=== PATIENT | male | born 1965 | race Caucasian/White ===

== ENCOUNTER 2018-03-21 04:01 | Emergency (ER) | payer OTHER ==
--- NOTE | 2018-03-21 04:04 | PDOC ---
History of Present Illness - General Chief Complaint: Pain Stated Complaint: LARYNGITIS Time Seen by Provider: 03/21/18 04:04 - History of Present Illness Initial Comments: This 53-year-old man with a history of anxiety and pituitary adenoma (removed more than 25 years ago) presents with a few day history of hoarse voice. Patient states this occurred because he was shouting at his college-age son to chicken picker his laundry. He denies pain on swallowing or breathing. He denies antecedent upper respiratory infection, cough, shortness of breath, fever/ chills. He states that he is a smoker (marijuana mostly) but does not have a significant cough. 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 In the past (about 12 years ago) , when he had a significant episode of laryngitis/hoarse voice, he was given a steroid inhaler and had rapid resolution of his hoarseness. Patient states that he does not have an ear nose and throat doctor at this time. Past History - Past Medical History Allergies/Adverse Reactions: Allergies Allergy/AdvReac Type Severity Reaction Status Date / Time morphine Allergy Verified 03/21/18 04:04 Home Medications: Ambulatory Orders Budesonide [Pulmicort Flexhaler] 90 mcg IH BID #1 [email or web address] 03/21/18 Diazepam [Valium] 2 mg PO PRN 03/21/18 Psychiatric Problems: Yes (patient has been on Zoloft and other psychotropic drugs , he did not like, ) - Suicide/Smoking/Psychosocial Hx Smoking Status: Yes Smoking History: Current every day smoker Years of Tobacco Use: 0 Number of Cigarettes Smoked Daily: 30 Cigars Per Day: 0 Hx Alcohol Use: Yes (frequent, mainly beer binges) Drug/Substance Use Hx: Yes Substance Use Type: Alcohol, Marijuana Hx Substance Use Treatment: No Review of Systems - Review of Systems Able to Perform ROS?: Yes Comments:: 12 point review of systems is negative except for what is noted in the history of present illness *Physical Exam - Physical Exam Comments: GENERAL: Adult male, speaking in no hoarse voice but in no acute distress HEAD: Normal with no signs of trauma. EYES: PERRLA, EOMI, sclera anicteric, conjunctiva clear. ENT: Ears normal, nares patent, oropharynx is erythematous without exudate/ edema. Dry mucous membranes. NECK: Normal range of motion, supple without lymphadenopathy, JVD, or masses. No stridor LUNGS: Breath sounds equal, clear to auscultation bilaterally. Scattered inspiratory rhonchi left greater than right HEART:Regular rate and rhythm, normal S1 and S2 without murmur, rub or gallop. ABDOMEN:.normal bowel sounds No guarding,tenderness or rebound.No masses No distention. EXTREMITIES: Normal range of motion, no edema. No clubbing or cyanosis. No erythema, or tenderness. NEUROLOGICAL: Cranial nerves II through XII grossly intact. Normal speech. No focal neurological deficits. MUSCULOSKELETAL: Back non-tender to palpation, no CVA tenderness SKIN: Warm, Dry, normal turgor, no rashes or lesions noted. Medical Decision Making - Medical Decision Making This 53-year-old man, presents with a few day history of hoarse voice reportedly from overuse (shouting at his son). He has no pain, cough or shortness of breath. Exam as noted Prescription for Pulmicort Flexhaler to be used twice a day transmitted to the patient's pharmacy. 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 He was advised, especially if he has persistent hoarseness, to follow up with ENT. Referral information for the [facility] given to the patient. He should return to ER if he has worsening hoarseness, experiences pain or shortness of breath *DC/Admit/Observation/Transfer Diagnosis at time of Disposition: Dysphonia - Discharge Dispostion Disposition: HOME Condition at time of disposition: Stable - Prescriptions Prescriptions: Budesonide [Pulmicort Flexhaler] 90 mcg IH BID #1 [email or web address] - Referrals Referrals: Sandip Horton MD [Staff Physician] - 1 week - Patient Instructions Printed Discharge Instructions: Laryngitis, Smoking Cessation Additional Instructions: Avoid using your voice as much as possible over the next several days Pulmicort flexhaler twice a day for the next week Follow-up with ENT physicians within the next 5-7 days ( Dr. [facility]) - Post Discharge Activity
[2018-03-21 04:12] VITALS: BP 137/93; PULSE 52; TEMP 97.9; BMI 25.5
== END 2018-03-21 04:47 | disposition home or self-care (01) ==
LOC: FER 04:01
DX: R49.0 Dysphonia (principal); F41.9 Anxiety disorder, unspecified; D36.7 Benign neoplasm of other specified sites
CPT/HCPCS: 99281-25

== ENCOUNTER 2020-10-11 15:15 | Emergency (ER) | payer OTHER ==
[2020-10-11 15:30] VITALS: BP 129/93; PULSE 70; TEMP 98.1; BMI 25.4
== END 2020-10-11 16:16 | disposition home or self-care (01) ==
LOC: FER 15:15
DX: M79.605 Pain in left leg (principal)
CPT/HCPCS: 99283-25

== ENCOUNTER 2021-02-10 20:17 | Emergency (ER) | payer OTHER ==
[2021-02-10 20:24] VITALS: BP 101/75; PULSE 80; TEMP 98.2; BMI 27.2
== END 2021-02-10 20:52 | disposition home or self-care (01) ==
LOC: FER 20:17
DX: S00.81XA Abrasion of other part of head, initial encounter (principal)
CPT/HCPCS: 99282-25

== ENCOUNTER 2021-02-12 11:16 | Emergency (ER) | payer OTHER ==
[2021-02-12 11:52] VITALS: BP 133/81; PULSE 69; TEMP 98.7; BMI 17.9
== END 2021-02-12 12:49 | disposition home or self-care (01) ==
LOC: FER 11:16
DX: S00.03XA Contusion of scalp, initial encounter (principal); S09.90XA Unspecified injury of head, initial encounter
CPT/HCPCS: 70450-TC; 99283-25

== ENCOUNTER 2021-03-20 22:50 | Emergency (ER) | payer OTHER ==
[2021-03-20 22:56] VITALS: BP 119/86; PULSE 80; TEMP 98.1; BMI 17.9
[2021-03-21] MEDS ORDERED: BENZOCAINE 20% 57 GM BOTTLE TP ONE
[2021-03-21] MEDS ORDERED: AMOX TR/POT CLAV 875MG/125MG TABLETS (FP) PO ONE (00:10)
[2021-03-21] MEDS ORDERED: AMOX TR/POT CLAV 875MG/125MG TABLETS (FP) ONE (00:10)
== END 2021-03-21 00:17 | disposition home or self-care (01) ==
LOC: FER 22:50
DX: K04.7 Periapical abscess without sinus (principal)
CPT/HCPCS: 99283-25

== ENCOUNTER 2022-02-21 14:50 | Emergency (ER) | payer OTHER ==
[2022-02-21] MEDS ORDERED: ACETAMINOPHEN 325 MG TABLET (FP) PO ONE (14:57)
[2022-02-21 15:09] VITALS: BP 135/88; PULSE 82; TEMP 98; BMI 26.4
[2022-02-21] MEDS ORDERED: ACETAMINOPHEN 325 MG TABLET (FP) ONE (15:12)
== END 2022-02-21 16:10 | disposition home or self-care (01) ==
LOC: FER 14:50
DX: M25.511 Pain in right shoulder (principal)
CPT/HCPCS: 73030-TC-RT-FY; 99283-25

== ENCOUNTER 2023-03-11 04:41 | Day surgery (SDC) | payer OTHER ==
[2023-03-09 14:30] VITALS: BMI 26.1
[~2023-03-11 04:41] MED LIST: BUPIVACAINE HCL/PF 0.75% 10 ML VIAL NR ONE; IOHEXOL 180 MG/1 ML ML IJ ONE; LIDOCAINE HCL 1% PRESERVATIVE FREE - 30ML VIAL IJ ONE; TRIAMCINOLONE ACET 40MG/1ML VIAL IM ONE
[2023-03-11] MEDS ORDERED: LIDOCAINE HCL/PF 1% SDV 5ML VIAL ONE (07:47)
[2023-03-11] MEDS ORDERED: BUPIVACAINE HCL/PF 0.75% 10 ML VIAL ONE (07:47)
[2023-03-11] MEDS ORDERED: ACETAMINOPHEN 500 MG TABLET (FP) PO PRN (08:41)
[2023-03-11 13:22] VITALS: RESP 20
[2023-03-11] MEDS ORDERED: BUPIVACAINE HCL/PF 0.75% 10 ML VIAL NR ONE (13:59)
[2023-03-11] MEDS ORDERED: LIDOCAINE HCL 1% PRESERVATIVE FREE - 30ML VIAL IJ ONE (13:59)
[2023-03-11] MEDS ORDERED: IOHEXOL 180 MG/1 ML ML IJ ONE (14:01)
[2023-03-11] MEDS ORDERED: TRIAMCINOLONE ACET 40MG/1ML VIAL IM ONE (14:01)
[2023-03-11 15:01] VITALS: BP 120/80; PULSE 80; TEMP 98
== END 2023-03-11 14:45 | disposition home or self-care (01) ==
LOC: JASU-SURG 04:41
PROVIDERS: ATTEND Pain Medicine Pain Medicine
PROC: 3E0T33Z Introduction of Anti-inflammatory into Peripheral Nerves and Plexi, Percutaneous Approach (ICD-10-PCS; 2023-03-11)
PROC: 3E0T3BZ Introduction of Anesthetic Agent into Peripheral Nerves and Plexi, Percutaneous Approach (ICD-10-PCS; principal; 2023-03-11 15:30)
DX: M47.816 Spondylosis without myelopathy or radiculopathy, lumbar region (principal)
CPT/HCPCS: 76000-TC-FY

== ENCOUNTER 2023-04-08 05:33 | Day surgery (SDC) | payer OTHER ==
[2023-04-06 13:46] VITALS: BMI 26.1
[2023-04-08] MEDS ORDERED: BUPIVACAINE HCL/PF 0.75% 10 ML VIAL ONE (07:36)
[2023-04-08] MEDS ORDERED: LIDOCAINE HCL/PF 1% SDV 5ML VIAL ONE (07:36)
[2023-04-08] MEDS ORDERED: LIDOCAINE HCL 1%, 10 MG/ML (20ML VIAL) INF ONE (12:57)
[2023-04-08] MEDS ORDERED: BUPIVACAINE HCL/PF 0.75% 10 ML VIAL NR ONE (12:58)
[2023-04-08 13:16] VITALS: PULSE 72; TEMP 97.7
[2023-04-08 13:23] VITALS: BP 120/80; RESP 18
[2023-04-08] MEDS ORDERED: ACETAMINOPHEN 500 MG TABLET (FP) PO PRN (14:41)
== END 2023-04-08 13:22 | disposition home or self-care (01) ==
LOC: JASU-SURG 05:33
PROVIDERS: ATTEND Pain Medicine Pain Medicine
PROC: BR16YZZ Fluoroscopy of Lumbar Facet Joint(s) using Other Contrast (ICD-10-PCS; 2023-04-08)
PROC: 3E0T3BZ Introduction of Anesthetic Agent into Peripheral Nerves and Plexi, Percutaneous Approach (ICD-10-PCS; principal; 2023-04-08 14:15)
DX: M47.816 Spondylosis without myelopathy or radiculopathy, lumbar region (principal)
CPT/HCPCS: 76000-TC-FY

== ENCOUNTER 2024-01-08 09:09 | Emergency (ER) | payer OTHER ==
[2024-01-08 09:27] VITALS: BP 143/92; PULSE 74; RESP 17; TEMP 98.2; BMI 31.9
== END 2024-01-08 10:27 | disposition home or self-care (01) ==
LOC: FER 09:09
DX: F41.9 Anxiety disorder, unspecified (principal)
CPT/HCPCS: 99283-25